=== PATIENT | female | born 1990 | race Caucasian/White ===

== ENCOUNTER 2017-07-28 18:18 | Emergency (ER) | payer BC, OTHER ==
[~2017-07-28 18:18] MED LIST: IBUP600 PO; OXYC1SOL5 PO; PERI8.6T PO; PRENCAP6 PO
[2017-07-28 18:38] VITALS: BP 142/76; PULSE 126; RESP 20; TEMP 100; O2SAT 100
--- NOTE | 2017-07-28 19:15 | PD ---
HPI Chief Complaint: Cold / Flu Symptoms Time Seen by Provider: 19:03 Travel History International Travel<30 days: No Contact w/Intl Traveler<30days: No Traveled to known affect area: No History of Present Illness HPI The patient is a 27-year-old female that for 2 days has had a low-grade fever, chills and sweats and chest congestion. She is about to start her period and she normally gets low back pain before her period. Her last menstrual period was on the 12th of last month. She denies any myalgias and has a mild headache which is gone now. She has a slight sore throat and he denies any ear pain. She is not really short of breath. She does have some chest pain in the midline sternal area. PFSH Past Medical History Bipolar Disorder: No Cardiovascular Problems: No Diabetes: No Diminished Hearing: No Gastrointestinal Disorders: No Genitourinary: No Musculoskeletal: No Neurologic: No Psychiatric: No Reproductive: No Respiratory: No Integumentary: No Seizures: No LMP: 4 WEEKS AGO Menopausal: No : 0 Para: 1 Miscarriage: 0 : 0 Past Surgical History Abdominal Surgery: No Cardiac Surgery: No Ear Surgery: No Endocrine Surgery: No Eye Surgery: No Genitourinary Surgery: No Gynecologic Surgery: No Neurologic Surgery: No Oral Surgery: No Thoracic Surgery: No Social History Alcohol Use: No Tobacco Use: No Substance Use: No Allergies-Medications (Allergen,Severity, Reaction): Coded Allergies: No Known Allergies (Verified Adverse Reaction, Unknown, 07/28/17) Reported Meds & Prescriptions Reported Meds & Active Scripts Active Zithromax (Azithromycin) 500 Mg Tab 500 Mg PO DAILY 10 Days Keflex (Cephalexin) 500 Mg Capsule 500 Mg PO Q6H 10 Days Reported Mononessa (Norgestimate-Ethinyl Estradiol) 0.25-35 Mg-Mcg Tab 1 Tab PO DAILY Review of Systems Except as stated in HPI: all other systems reviewed are Neg Physical Exam Narrative GENERAL: The patient is alert, oriented 3 in no respiratory distress. The temperature is 100 and the heart rate is 126 but the rest the vital signs are unremarkable. SKIN: Focused skin assessment warm/dry. HEAD: Atraumatic. Normocephalic. EYES: Pupils equal and round. No scleral icterus. No injection or drainage. ENT: No nasal bleeding or discharge. Mucous membranes pink and moist. The throat is clear without exudate, abscess or erythema. NECK: Trachea midline. No JVD. CARDIOVASCULAR: Regular rate and rhythm. No murmur appreciated. RESPIRATORY: No accessory muscle use. Clear to auscultation. Breath sounds equal bilaterally. GASTROINTESTINAL: Abdomen soft, non-tender, nondistended. Hepatic and splenic margins not palpable. No guarding or rebound is present. MUSCULOSKELETAL: No obvious deformities. No clubbing. No cyanosis. No edema. NEUROLOGICAL: Awake and alert. No obvious cranial nerve deficits. Motor grossly within normal limits. Normal speech. PSYCHIATRIC: Appropriate mood and affect; insight and judgment normal. Data Data Last Documented VS Vital Signs Date Time Temp Pulse Resp B/P (MAP) Pulse Ox O2 Delivery O2 Flow Rate FiO2 07/28/17 19:24 Room Air 07/28/17 18:38 100.0 126 20 142/76 (98) 100 Orders Orders Chest, Pa & Lat (07/28/17 19:10) Urinalysis - C+S If Indicated (07/28/17 19:10) Ed Urine Pregnancytest Poc (07/28/17 19:10) Urine Culture (07/28/17 19:16) Azithromycin (Zithromax) (07/28/17 19:45) Ceftriaxone Inj (Rocephin Inj) (07/28/17 19:45) Labs Laboratory Tests Test 07/28/17 19:16 Urine Color YELLOW Urine Turbidity CLEAR Urine pH 6.0 Urine Specific [place] 1.017 Urine Protein NEG mg/dL Urine Glucose (UA) NEG mg/dL Urine Ketones NEG mg/dL Urine Occult Blood NEG Urine Nitrite NEG Urine Bilirubin NEG Urine Leukocyte Esterase SMALL Urine RBC 0-2 /hpf Urine WBC 6-8 /hpf Urine Squamous Epithelial Cells 6-8 /hpf Urine Bacteria MOD /hpf Microscopic Urinalysis Comment CULTURE INDICATED MDM Medical Decision Making Medical Screen Exam Complete: Yes Emergency Medical Condition: Yes Medical Record Reviewed: Yes Interpretation(s) The chest x-ray shows a small right lower lobe infiltrate. Differential Diagnosis Viral upper respiratory infection, urinary tract infection, pneumonia, Narrative Course The patient has a right lower lobe pneumonia. This is community-acquired. She will be given Zithromax and Keflex. She will get 1 g of Rocephin IV here as well as by mouth Zithromax here. She needs to follow-up with her primary care physician this week or early next week. If worse, she should return to the emergency department. She also has a urinary tract infection. Sepsis Criteria SIRS Criteria (2 or more): Heart rate over 90 Diagnosis Primary Impression: Right lower lobe pneumonia Additional Instructions: Follow-up with your primary care physician this week or early next week. If worse, you may need to return to the emergency department for evaluation for admission. Med/Other Pt SpecificInfo: Prescription(s) given Scripts Azithromycin (Zithromax) 500 Mg Tab 500 MG PO DAILY for Infection for 10 Days, #10 TAB 0 Refills Prov: Tom Lopez MD 07/28/17 Cephalexin (Keflex) 500 Mg Capsule 500 MG PO Q6H for Infection for 10 Days, #40 CAP 0 Refills Prov: Tom Lopez MD 07/28/17 Disposition: 01 DISCHARGE HOME Condition: Stable Tom Lopez MD Jul 28, 2017 19:15
[2017-07-28] MEDS ORDERED: MONOTAB PO (19:23)
[2017-07-28 19:30] LABS: BLOOD, URINE NEG (NEG); GLUCOSE,URINE NEG (NEG); KETONE, URINE NEG (NEG); NITRITE,URINE NEG (NEG)
--- NOTE | 2017-07-28 19:33 | RADRPT ---
EXAM DATE/TIME: 07/28/2017 19:14 [facility] COMPARISON: No previous studies available for comparison. INDICATIONS : Cough, fever, flu-like symptoms for 3 days MEDICAL HISTORY : None. SURGICAL HISTORY : None. ENCOUNTER: Initial ACUITY: 3 days PAIN SCORE: 3/10 LOCATION: Bilateral chest FINDINGS: PA and lateral views of the chest show a small infiltrate within the right lung base. Remaining lungs are clear. Heart is normal in size. No effusions. Mild scoliotic curvature. CONCLUSION: Small right lower lobe infiltrate. Darryl Guillaume Jr., MD on July 28, 2017 at 19:31 Board Certified Radiologist. This report was verified electronically.
[2017-07-28 19:38] LABS: URINE COLOR YELLOW (YELLW/STRAW)
[2017-07-28 19:39] LABS: BACTERIA, URINE MOD /hpf; COMMENT (UR) CULTURE INDICATED; CULTURE IF INDICATED CULTURE INDICATED; RBC, URINE 0-2 /hpf (0-3)
[2017-07-28] MEDS ORDERED: cefTRIAXone INJ 1,000 MG in SODIUM CHLORIDE 0.9% INJ 100 ML IV ONE (19:45)
[2017-07-28] MEDS ORDERED: AZITHROMYCIN 250 MG TAB PO ONE (19:45)
[2017-07-28] MEDS ORDERED: ZITH500T PO (19:45)
[2017-07-28] MEDS ORDERED: CEPH-460 PO (19:45)
[2017-07-28 21:17] VITALS: BP 118/63; TEMP 99.8
== END 2017-07-28 21:19 | disposition home or self-care (01) ==
LOC: PHED 18:18
DX: J18.9 Pneumonia, unspecified organism (principal); N39.0 Urinary tract infection, site not specified; B96.89 Other specified bacterial agents as the cause of diseases classified elsewhere
CPT/HCPCS: 71020; 81001; 84703; 87086; 96365; 99284; J0696

== ENCOUNTER 2017-09-24 03:51 | Emergency (ER) | payer BC ==
[~2017-09-24] VITALS: Ht 175.3 cm; Wt 70.4 kg
[~2017-09-24 03:51] MED LIST changes: +CEPH-460 PO; -IBUP600 PO; +MONOTAB PO; -OXYC1SOL5 PO; -PERI8.6T PO; -PRENCAP6 PO; +ZITH500T PO
[2017-09-24 03:58] VITALS: BP 137/71; PULSE 128; TEMP 102.3; O2SAT 97
[2017-09-24] MEDS ORDERED: SODIUM CHLORIDE 0.9% FLUSH 10 ML FLUSH IVF PRN (04:15)
--- NOTE | 2017-09-24 04:15 | PD ---
HPI Chief Complaint: cough, fever Time Seen by Provider: 03:59 Travel History International Travel<30 days: No Contact w/Intl Traveler<30days: No Traveled to known affect area: No History of Present Illness HPI The patient is a 27-year-old female that complains of a sore throat, cough, myalgias for 1 day. She also has a fever. She works at [employer]. She does have a history of asthma but denies any wheezing. Last year she had a history of right lower lobe pneumonia. She states this feels different tonight. She states there is no possibility of . The patient has children at home but they were symptomatic before the patient was. The patient thinks that she got this from her children. PFSH Past Medical History Asthma: Yes Bipolar Disorder: No Cardiovascular Problems: No Diabetes: No Diminished Hearing: No Gastrointestinal Disorders: No Genitourinary: No Musculoskeletal: No Neurologic: No Psychiatric: No Reproductive: No Respiratory: No Integumentary: No Pneumonia: Yes Seizures: No Menopausal: No : 1 Para: 2 Miscarriage: 0 : 0 Past Surgical History Abdominal Surgery: No Cardiac Surgery: No Section: Yes Ear Surgery: No Endocrine Surgery: No Eye Surgery: No Genitourinary Surgery: No Gynecologic Surgery: Yes () Neurologic Surgery: No Oral Surgery: No Thoracic Surgery: No Social History Alcohol Use: No Tobacco Use: No Substance Use: No Allergies-Medications (Allergen,Severity, Reaction): Coded Allergies: No Known Allergies (Verified Adverse Reaction, Unknown, 07/28/17) Reported Meds & Prescriptions Reported Meds & Active Scripts Active Tamiflu (Oseltamivir Phosphate) 75 Mg Cap 75 Mg PO BID 5 Days Zithromax (Azithromycin) 500 Mg Tab 500 Mg PO DAILY 10 Days Keflex (Cephalexin) 500 Mg Capsule 500 Mg PO Q6H 10 Days Reported Mononessa (Norgestimate-Ethinyl Estradiol) 0.25-35 Mg-Mcg Tab 1 Tab PO DAILY Review of Systems Except as stated in HPI: all other systems reviewed are Neg Physical Exam Narrative GENERAL: Well-nourished, well-developed patient in slight apparent distress with her sore throat and cough. The vital signs show temperature 102.3 with heart rate of 128 but otherwise normal. SKIN: Focused skin assessment warm/dry. HEAD: Normocephalic. EYES: No scleral icterus. No injection or drainage. NECK: Supple, trachea midline. No JVD or lymphadenopathy. CARDIOVASCULAR: Regular rate and rhythm without murmurs, gallops, or rubs. RESPIRATORY: Breath sounds equal bilaterally. No accessory muscle use. GASTROINTESTINAL: Abdomen soft, non-tender, nondistended. MUSCULOSKELETAL: No cyanosis, or edema. BACK: Nontender without obvious deformity. No CVA tenderness. Data Data Last Documented VS Vital Signs Date Time Temp Pulse Resp B/P (MAP) Pulse Ox O2 Delivery O2 Flow Rate FiO2 09/24/17 04:13 Room Air 09/24/17 03:58 102.3 128 137/71 (93) 97 Orders Orders Influenzae A/B Antigen (09/24/17 04:01) Sodium Chloride 0.9% Flush (Ns Flush) (09/24/17 04:15) Group A Rapid Strep Screen (09/24/17 04:11) Strep Culture (Group A) (09/24/17 04:15) Acetaminophen (Tylenol) (09/24/17 05:00) Oseltamivir (Tamiflu) (09/24/17 05:00) MDM Medical Decision Making Medical Screen Exam Complete: Yes Emergency Medical Condition: Yes Medical Record Reviewed: Yes Interpretation(s) The influenza A/B antigen is positive for flu a antigen. The strep screen is negative for group A strep. Differential Diagnosis Strep pharyngitis, viral pharyngitis, flu syndrome, nonspecific viral syndrome, pneumonia, bronchitis Narrative Course The patient has a flu syndrome. She will be given Tamiflu since she had it for only 24 hours. The first dose will be given here. The children should be evaluated by their post tronic machine operator. Diagnosis Primary Impression: Influenza A Additional Instructions: Have your children evaluated by their post tronic machine operator. If you are coughing a lot, use a mask. Wash hands frequently at home. We will give you a seven-day work excuse. Med/Other Pt SpecificInfo: Prescription(s) given Scripts Oseltamivir (Tamiflu) 75 Mg Cap 75 MG PO BID for Mgmt Viral Infection for 5 Days, #10 CAP 0 Refills Prov: Tom Lopez MD 09/24/17 Disposition: 01 DISCHARGE HOME Condition: Stable Tom Lopez MD Sep 24, 2017 04:14
[2017-09-24] MEDS ORDERED: OSEL75 PO (04:47)
[2017-09-24] MEDS ORDERED: OSELTAMIVIR PHOSPHATE 75 MG CAP PO ONE (05:00)
[2017-09-24] MEDS ORDERED: ACETAMINOPHEN 500 MG CPLT PO ONE (05:00)
[2017-09-24 05:21] VITALS: BP 123/84; PULSE 112; RESP 18; TEMP 99.9; O2SAT 98
== END 2017-09-24 05:23 | disposition home or self-care (01) ==
LOC: PHED 03:51
DX: J09.X2 Influenza due to identified novel influenza A virus with other respiratory manifestations (principal); J45.909 Unspecified asthma, uncomplicated; Z79.899 Other long term (current) drug therapy
CPT/HCPCS: 87081; 87804; 87880; 99283